=== PATIENT | male | born 1955 | race Caucasian/White ===

== ENCOUNTER 2016-10-22 01:35 | Inpatient (IN) | payer OTHER, MEDICARE ==
[~2016-10-22] VITALS: Ht 180.3 cm; Wt 99.8 kg
[~2016-10-22 01:35] MED LIST: AMBIEN5 M1 PO; GABAPENTIN600 M1 PO; METHADONE HCL10 M1 PO; OXYBUTYNIN CHLO10 M1 PO; OXYCODONE HCL15 M1 PO
--- NOTE | 2016-10-22 11:37 | Operative Report ---
Operative/Inv Procedure Report Surgery Date: 10/22/16 Name of Procedure: 1 open incision and drainage deep to the D fashion with exposure of the extensor and flexor tendon and tendon sheath multiple sites right foot 2 partial second ray resection right foot 3 intraoperative administration of ankle block anesthesia 4 excisional debridement Pre-Operative Diagnosis: 1 open necrotic wound right foot 2 osteomyelitis right foot 3 peripheral arterial disease Post-Operative Diagnosis: The same Estimated Blood Loss: less than 50ml Surgeon/Oil Lease Buyer: MARTÍN HOPKINS DPM Anesthesia: moderate sedation, block Operative/Procedure Note Note: After obtaining informed consent the patient was brought to the operating room and placed on the operating table in the supine position. The patient was then securely fastened to the operating table utilizing safety belt. After administration of IV sedation, 10 mL of 0.5% Marcaine plain was infiltrated about the patient's right ankle. The right foot and ankle then scrubbed prepped and draped in usual aseptic manner. Attention directed the right foot, where a large full-thickness necrotic was identified. The blade was utilized sharply revised skin margins. The dissection was then carried down deep to the D fashion with exposure of the extensor and flexor tendon and tendon sheath multiple sites, both proximally and distally. All necrotic nonviable infected tissue sharply evacuated from the wound bed. The dissection was then carried down to the periosteum overlying the distal second ray, which was incised reflected. Sagittal bone saw was utilized from a through and through osteotomy. The distal segment of bone was passed from the operative field and specimen was sent for both microbiologic and pathologic inspection. Upper was then irrigated with 3 L of normal sterile saline infusion 50,000 units of bacitracin. Following this, the foot was redraped and the surgeon's top gloves were exchanged for clean gloves. Any vessels identified were cauterized or ligated as encountered. The foot was then packed with iodoform and 3-0 nylon retention sutures were placed. The patient was noted to tolerate both procedure and anesthesia well and the patient was transported from the operating room to recovery with vital signs stable.
[2016-10-22 14:31] VITALS: BP 157/73
--- NOTE | 2016-10-22 16:36 | NUR ---
RIGO EDGAR; THIS RN ASSUMED CARE OF THE PT AT 1500, NO ORDER FOR [facility] IN COMPUTER, THIS RN CALLED DR. HOPKINS, PER DR. HOPKINS OK FOR THIS RN TO PUT ORDER IN FOR WALL, WILL CONT TO MONITOR.
[2016-10-22 22:32] VITALS: BP 148/78
[2016-10-23 07:17] VITALS: BP 112/72
--- NOTE | 2016-10-23 12:12 | NUR ---
NURSING NOTE: PATIENT A/OX3, DENIES PAIN AT THIS TIME. WALL CATHETER IN PLACE. PATIENT LEFT FLOOR VIA STRETCHER WITH DISTRIBUTION FOR ULTRASOUND. WILL AWAIT RETURN.
--- NOTE | 2016-10-23 13:00 | NUR ---
NURSING NOTE: PATIENT RETURNED TO FLOOR VIA STRETCHER WITH DISTRIBUTION FROM ULTRASOUND. PATIENT A/OX3, DENIES PAIN AT THIS TIME. WILL CONTINUE TO MONITOR. WALL CATHETHER PATENT
--- NOTE | 2016-10-23 13:45 | PN- Podiatry ---
Subjective Subjective: Patient seen bedside with no acute complaints. Patient denies nausea vomiting fever chills. Patient denies right foot pain. Objective Vital Signs and I&Os Vital Signs Date Time Temp Pulse Resp B/P Pulse O2 O2 Flow FiO2 Ox Delivery Rate 10/23 0717 98.6 56 20 112/72 96 Room Air 10/22 2232 98.7 62 20 148/78 95 Room Air 10/22 1431 97.8 54 20 157/73 98 Room Air Intake & Output 10/23 1600 10/23 0800 10/23 0000 10/22 1600 10/22 0800 10/22 0000 Intake Total 440 900 Output Total 800 350 Balance -360 550 Intake, IV 200 100 Intake, Oral 240 800 Output, Urine 800 350 Patient 220 lb Weight Physical Exam: Dressing right foot clean dry and intact. No strikethrough identified. No pain with deep palpation bilateral lower extremity's. Assessment/Plan Assessment/Plan Cellulitis and right foot ostium myelitis. Continue IV Unasyn. Initial cultures demonstrate staph aureus. Patient to the OR Friday for revision and closure. Follow-up arterial ultrasound with possible vascular consult. Core Measures/Miscellaneous Venous Thromboembolism VTE Risk Factors: Age > 40, Immobility, paresis, Surgery VTE Contraindications: No Contraindications VTE Diagnosis: No Beta Jimmie Is Beta Jimmie a Home Med? No Antibiotics Is Patient on Antibiotics? Yes If Yes: infection Attending MD Review Statement Attending Statement Attending MD Statement: examined this patient
[2016-10-23 14:16] VITALS: BP 130/64
--- NOTE | 2016-10-23 15:20 | ULTRASOUND REPORT ---
EXAMINATION: US NONINVASIVE ASSESSMENT OF THE ARTERIES OF LOWER EXTREMITIES, BILATERAL INTERPRETING VASCULAR \T\ INTERVENTIONAL RADIOLOGIST: Justin Pollack MD CLINICAL INFORMATION: Nonhealing ulcer of both feet. TECHNIQUE: Bilateral lower extremity duplex ultrasound was performed with velocity measurements and waveform analysis in the common femoral arteries, profunda femoris arteries, proximal mid and distal superficial femoral arteries, popliteal arteries and tibial vessels. This study was performed only at rest. COMPARISON: None FINDINGS: Velocities in cm/sec and phasicity as well as the presence of plaque are reported below. RIGHT LEG: Flow is triphasic in the common femoral and superficial femoral artery but in the popliteal artery and below, it is monophasic with the following velocities: Common femoral: 128 Profunda femoris: 63.3 Proximal SFA: 112 Mid SFA: 85.4 Distal SFA: 81.9 Popliteal: 130 Posterior tibial: Not visualized Anterior tibial: 108 Dorsalis pedis: Not visualized LEFT LEG: Flow is triphasic everywhere with the exception of the dorsalis pedis where it is biphasic with the following velocities: Common femoral: 143 Profunda femoris: 63.3 Proximal SFA: 119 Mid SFA: 90.9 Distal SFA: 59.4 Popliteal: 90.4 Posterior tibial: 67 Anterior tibial: 104 Dorsalis pedis: 86.4 IMPRESSION: No areas of velocity acceleration seen. Monophasic flow is noted on the right below the knee with the only runoff vessel visualized being the anterior tibial artery. Findings are suggestive of tibial disease on the right. On the left, no hemodynamically significant disease is seen.
[2016-10-23 23:41] VITALS: BP 140/70
[2016-10-24 07:33] VITALS: BP 125/60
[2016-10-24 14:02] VITALS: BP 114/68
[2016-10-24 14:18] VITALS: BP 114/72
[2016-10-24 14:19] VITALS: BP 166/78
--- NOTE | 2016-10-24 16:07 | NUR ---
AT THIS TIME PT DOWN TO OR. PT ALERT AND ORIENTEDX3, VSS, RA, SCRUB COMPLETED, CHECKLIST COMPLETED, WILL CONT TO MONITOR.
--- NOTE | 2016-10-24 17:14 | Operative Report ---
Operative/Inv Procedure Report Surgery Date: 10/24/16 Name of Procedure: 1 open incision and drainage deep to the D fashion with exposure of the flexor tendon and tendon sheath multiple sites right foot 2 delayed primary closure of open surgical wound local random advancement flap 3 revisional second ray resection right foot 4 intraoperative administration of ankle block anesthesia 5 excisional debridement Pre-Operative Diagnosis: 1 open necrotic wound right foot 2 osteomyelitis right foot Post-Operative Diagnosis: The same Estimated Blood Loss: less than 50ml Surgeon/Process Mechanic: MARTÍN HOPKINS DPM Anesthesia: moderate sedation, block Operative/Procedure Note Note: After obtaining informed consent the patient was brought to the operating room and placed on the operating table in the supine position. The patient isn't securely fastened to the operating table utilizing safety belt. After administration of IV sedation, 8 mL of 0.5% Marcaine plain was infiltrated about the patient's right ankle. The right foot and ankle within scrubbed prepped and draped in usual aseptic manner. Attention directed the right foot, where a large full-thickness necrotic was identified. A 15 blade visualized sharply revised skin margins. The dissection was then carried down deep to the D fashion with exposure of the extensor tendon and tendon sheath multiple sites, both proximally and distally. All necrotic nonviable infected tissue sharply evacuated from the wound bed. Dissection was then carried down to the periosteum and capsular structures metatarsophalangeal joint with these were incised reflected. The distal osseous segment was freed and passed from the operative field. Specimen was sent for pathologic inspection. The open wound was then irrigated with 3 L of normal sterile saline infusion 50,000 units of bacitracin. Following this, the foot was redraped and the surgeon's top gloves were exchanged for clean gloves. Any bleeding vessels identified were cauterized or ligated as encountered. A dorsal medial and dorsal lateral flap was then developed with undermining and mobilization adjacent tissues. The flap was then rotated towards the central aspect of the wound and held at its deep side with 3-0 Vicryl. The septae is tissues reports a 4-0 Vicryl and the skin edges reapproximated 3-0 nylon. Incision was dressed with Xeroform 4 x 4's Kerlix and an Claude wrap. The patient was noted to tolerate both procedure and anesthesia well and the patient was transported from the operating room to recovery by sent stable best assess intact to both the dorsal medial and dorsal lateral flaps.
[2016-10-24 17:50] VITALS: BP 124/62
--- NOTE | 2016-10-24 17:50 | NUR ---
AT THIS TIME PT BACK TO FLOOR FROM PACU, PT ALERT AND ORIENTEDX3, RA, VSS, DSG TO R FOOT C/D/I, PT HAS NO COMPLAINTS AT THIS TIME, WILL CONT TO MONITOR
[2016-10-24 22:06] VITALS: BP 120/70
[2016-10-25 06:18] VITALS: BP 118/68
[2016-10-25] MEDS ORDERED: AUGMENTIN 875-1 EACH PO (12:16)
[2016-10-25 13:49] VITALS: BP 126/53
--- NOTE | 2016-11-15 13:36 | Surgical Discharge Summary ---
Visit Information Visit Dates Admission Date: 10/22/16 Discharge Date: 10/25/16 History of Present Illness Chief Complaint: Mat is a 61-year-old male with a long-standing history of a nonhealing ulcer to his right second digit. The patient has undergone an extended course of conservative care, including shoe gear and activity modification, local intensive wound care and strict offloading. None of this is improved his nonhealing ulcer, and in fact he suffered an interval worsening now with an underlying osteomyelitis. 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 Home Who Do You Live With? Spouse Services at Home: Wheelchair What is Your Primary Language? Scottish Review of Systems: Unremarkable except for that noted in history present illness Hospital Course Course Attending Physician: MARTÍN HOPKINS DPM Primary Care Physician: ANTHONY SORTO,[facility] Course: Shereen was admitted following an initial debridement consisting of an open partial second ray resection for IV antibiotics. Patient was transferred to the floor and remained stable and afebrile during the course of his stay. Patient returned for a revision and closure 2 days later. Allergies: Coded Allergies: No Known Allergies (04/17/16) Disposition Summary Disposition Principal Diagnosis: Osteomyelitis right foot Additional Diagnosis: Cellulitis right lower extremity Discharge Disposition: home or self care Discharge Instructions General Discharge Information Code Status: Full Code Patient's Diet: Regular Patient's Activity: Nonweightbearing right foot Follow-Up Instructions/Appts: Patient instructed to follow-up with Dr. Hopkins within 1 week of discharge. Medications at Discharge Discharge Medications: Continue taking these medications: Oxybutynin Chloride (Oxybutynin Chloride ER) 10 MG TAB.ER.24 1 Tablet ORAL DAILY Days = 30 Comments: Last Taken:10/25/16 Time:10AM Gabapentin (Gabapentin) 600 MG TABLET 1 Tablet ORAL TWICE DAILY Days = 30 Comments: Last Taken:10/25/16 Time:10AM Oxycodone HCl (Oxycodone HCl) 15 MG TABLET 1 Tablet ORAL 4XD Days = 20 Zolpidem Tartrate (Ambien) 5 MG TABLET 1 Tablet ORAL Every night as needed as needed for Insomnia Qty = 7 Comments: Last Taken:10/24/16 Time:10PM Start taking the following new medications: Amoxicillin/Potassium Clav (Augmentin 875-125 Tablet) 875 MG-125 MG TABLET 1 Tablet ORAL TWICE DAILY Qty = 14 No Refills Attending MD Review Statement Attending Statement Attending MD Statement: examined this patient
== END 2016-10-25 14:10 | DRG 464 ==
LOC: ENRESERVDT → ENRESERVTM → STS 01:35 → PACUH 11:39 → 2NB 11:39 → ENPENDDIS 11:39 → 2NB 13:34
PROVIDERS: ADMIT Podiatrist Foot & Ankle Surgery
PROC: 0Y6R0Z3 Detachment at Right 2nd Toe, Low, Open Approach (ICD-10-PCS; principal; 2016-10-22)
PROC: 0HXMXZZ Transfer Right Foot Skin, External Approach (ICD-10-PCS; 2016-10-24)
DX: M86.171 Other acute osteomyelitis, right ankle and foot (principal); L03.115 Cellulitis of right lower limb; G82.20 Paraplegia, unspecified; S24.104S Unspecified injury at T11-T12 level of thoracic spinal cord, sequela; X58.XXXS Exposure to other specified factors, sequela
CPT/HCPCS: 2NBP; 87070; 87075; 87184; 87086; 87147; 88305; 88307; 93925; J1644; J1885; J2001